=== PATIENT | female | born 1965 | race Caucasian/White ===

== ENCOUNTER 2022-04-11 12:30 | Outpatient (RCR) | payer OTHER, SELFPAY ==
--- NOTE | 2022-03-28 14:23 | PTOPEVAL ---
PHYSICAL THERAPY EVALUATION AND PLAN OF CARE Thank you for referring Neeta Cottrell to [facility].? The patient is scheduled to be seen for therapy? 1-2x/month for 2months. Please review, sign, date and return this plan of care JOAN. I agree with and certify that the following plan of care is medically necessary. Referring Physician Date Attending Provider: Marycarmen Chow Diagnosis somatic and sensory dysfunction of pelvic floor Onset 2 years Subjective Information States that she has been Query Text:As Reported By Patient/ having external vulvar itching Family for the last two years. She has had all kinds of cultures and tests and all came back negative. she has seen a body maker machine setter without any positive findings. She has had a hysterectomy and uses an estrogen patch and an estrogen cream every week. They were noting weakness of the pelvic floor and Neeta states there is a suspician that the weakness of the pelvic floor is causing the nerves within the vagina causing itching sensation. Pelvic Health Evaluation Current/Past Medical History Prior Function reports she has no significant concern for urinary incontinence. She reports minimal leakage if she is doing some activity with a full bladder. does not use any pads. 2 c-sections, first born was born at 36wks >8lb. She was on bedrest for 2 months with both children. She had a hysterectomy within the last year. She has not been told she has a prolapse. Her main complaint is this itchiness that will come on at intermittent times. Pelvic Floor Assessment Permission Received for External/ Yes Internal Perineal Exam External Perineal Body Mobility Present Voluntary External Perineal Body Mobility Present Involuntary Internal Perineal Body Palpation non tender throughout; generally increased resting muscl
--- NOTE | 2022-05-06 09:52 | PCPTNOTE ---
Patient called & cancelled scheduled appointment this date.
--- NOTE | 2022-05-06 09:52 | PCPTNOTE ---
PHYSICAL THERAPY DISCHARGE NOTE Attending Provider: Marycarmen Chow Patient:Neeta Cottrell Date of :1965 Neeta has participated in pelvic floor physical therapy and was provided with extensive education and training on pelvic floor musculoskeletal health and HEP. She is independent in HEP. We will D/C from PT at this time. Thank you for referring this patient to [facility]. Please review, sign, date and return this discharge summary JOAN. I have been updated about the patient's current status and I agree with discharge from the above service at this time. Referring Physician Date
== END 2022-05-07 08:14 | disposition home or self-care (01) ==
LOC: ANHPT 12:30
DX: M99.05 Segmental and somatic dysfunction of pelvic region (principal)
CPT/HCPCS: 97110; 97112; 97162